=== PATIENT | female | born 1960 | race Caucasian/White ===

== ENCOUNTER 2018-07-02 08:29 | Emergency (ER) | payer SELFPAY ==
[2018-07-02] MEDS ORDERED: CLINDAMYCIN PHOSPHATE INJ 300 MG/2 ML SDV IV ONE (09:21)
[2018-07-02] MEDS ORDERED: HYDROMORPHONE HCL INJ/PF 2 MG/ML AMPULE IV ONE ×2 (09:22→13:47)
[2018-07-02] MEDS ORDERED: ONDANSETRON HCL INJ/PF 4 MG/2 ML SDV IV ONE (09:22)
--- NOTE | 2018-07-02 09:34 | ER Document Report ---
ED General - General Chief Complaint: Abscess Stated Complaint: POSSIBLE ABSCESS Time Seen by Provider: 07/02/18 09:14 Notes: 58-year-old female presents with 4-day history of left neck swelling. She has a history of salivary duct stones. She states that she is feeling pus in her mouth. States when she lifts her tongue she can feel pus escaping from the underneath. She denies any significant difficulty swallowing denies fever chills denies nausea vomiting planes of severe 10 out of 10 pain in her left neck. Movement makes it worse. She denies any headache or blurred vision. Denies extremity numbness tingling or weakness. TRAVEL OUTSIDE OF THE [place] IN LAST 30 DAYS: No - Related Data Allergies/Adverse Reactions: No Known Allergies Allergy (Unverified 07/02/18 08:31) Past Medical History - Social History Smoking Status: Unknown if Ever Smoked Family History: Other Review of Systems - Review of Systems EENT: Throat pain, Throat swelling, Mouth pain, Mouth swelling Cardiovascular: denies: Chest pain, Dyspnea Respiratory: denies: Short of breath Gastrointestinal: denies: Nausea, Vomiting Neurological/Psychological: denies: Headaches -: Yes All other systems reviewed and negative Physical Exam - Vital signs Vitals: Temp Pulse Resp BP Pulse Ox 99.8 F 78 20 165/78 H 96 07/02/18 08:34 07/02/18 08:34 07/02/18 08:34 07/02/18 08:34 07/02/18 08:34 - Notes Notes: GENERAL_APPEARANCE: well_nourished, alert, cooperative, appears uncomfortable VITALS: reviewed, see vital signs table. HEAD: no_swelling\tenderness on the head. EYES: PERRL, EOMI, conjunctiva_clear. NOSE: no_nasal_discharge. MOUTH: (-)decreased moisture. THROAT: no_tonsilar_inflammation, no_airway_obstruction. no_lymphadenopathy NECK: supple, (-)thyromegaly. There is swelling under the left mandible. There is no obvious fluctuance that is firm. The patient has had several teeth removed on the left lower jaw there is some redness and some pus being expressed around the jaw/salivary gland. BACK: no_back_tenderness. CHEST_WALL: no_chest_tenderness. LUNGS: no_wheezing, no_rales, no_rhonchi, (-)accessory muscle use, good air exchange bilateral. HEART: normal_rate, normal_rhythm, normal_S1, normal_S2, (-)S3, (-)S4, no_murmur, no_rub. ABDOMEN: normal_BS, soft, no_abd_tenderness, (-)guarding, (-)rebound, no_organomegaly, no_abd_masses. EXTREMITIES: good pulses in all_extremities, no_swelling\tenderness in the extremities, no_edema. SKIN: warm, dry, good_color, no_rash. MENTAL_STATUS: speech_clear, oriented_X_3, normal_affect, responds_appropriately to questions. Course - Re-evaluation Re-evalutation: 07/02/18 09:33 58-year-old female presents with a neck abscess. This may likely be a obstructed or infected salivary gland. We will get a CT of the soft tissue of the neck to evaluate we will give some IV antibiotics. Something for pain. Patient has no airway obstruction no drooling or stridor. The right side of the floor the mouth seems unaffected worse the left is slightly reddened and has some pus being expressed the closer it gets closer to the inside of the shelton ible. 07/02/18 13:[address] 07/02/18 09:21 IMPRESSION: Left submandibular sialadenitis with sialolithiasis. No abscess or obvious fluid collection. Patient given a dose of steroids here with placed on antibiotics steroids for home. Will prescribe her something for pain. She received pain medicine here and felt better I have her continue to month massage the floor of her mouth and use lemon drops and sour tasting acidic juice to try to liberate the stones. We will give her ENT follow-up. - Vital Signs Vital signs: Temp Pulse Resp BP Pulse Ox 98.7 F 76 16 128/84 H 96 07/02/18 13:28 07/02/18 13:28 07/02/18 13:28 07/02/18 13:28 07/02/18 13:28 - Laboratory Result Diagrams: 07/02/18 10:06 07/02/18 10:06 Laboratory results interpreted by me: 07/02/18 10:06 WBC 11.1 H Lymphocytes % 11.5 L Absolute Neutrophils 8.6 H - Diagnostic Test Radiology reviewed: Reports reviewed Discharge - Discharge Clinical Impression: Sialadenitis Condition: Good Disposition: HOME, SELF-CARE Instructions: Dental Infection or Abscess ([facility]) Additional Instructions: Call [facility] for an appointment. Continue using lemon drops and Lyme and sour drops and massage the floor of the mouth to try to liberate the salivary stones. Prescriptions: Clindamycin HCl 300 mg PO QID #30 capsule Hydrocodone/Acetaminophen [Kin[place] 5-325 mg Tablet] 1 tab PO TID PRN #20 tablet PRN Reason: Pain Scale Of 5 Prednisone [Deltasone 10 mg Tablet] 10 mg PO ASDIR PRN #21 tablet PRN Reason: Referrals: ONEAL ANDREW NP [Primary Care Provider] - Follow up as needed ELOINA LOPEZ MD [ACTIVE STAFF] - Follow up as needed
[2018-07-02 10:40] LABS: ABSOLUTE BASOPHILS # (AUTO) 0.1 10^3/uL (0.0-0.2); ABSOLUTE EOSINOPHILS # (AUTO) 0.2 10^3/uL (0.0-0.6); ABSOLUTE LYMPHOCYTES (AUTO) 1.3 10^3/uL (0.5-4.7); ABSOLUTE MONOCYTES (AUTO) 0.9 10^3/uL (0.1-1.4); ABSOLUTE NEUT (AUTO) 8.6 10^3/uL (1.7-8.2); BASOPHILS % (AUTO) 0.6 % (0-2); EOSINOPHILS % (AUTO) 2.3 % (0-6); HEMATOCRIT 38.2 % (36.0-47.0); HEMOGLOBIN 12.6 g/dL (12.0-15.5); LYMPHOCYTES % (AUTO) 11.5 % (13-45); MEAN CORPUSCULAR HEMOGLOBIN 29.5 pg (27.0-33.4); MEAN CORPUSCULAR HGB CONC 32.9 g/dL (32.0-36.0); MEAN CORPUSCULAR VOLUME 90 fl (80-97); MONOCYTES % (AUTO) 8.1 % (3-13); PLATELET COUNT 196 10^3/uL (150-450); RED BLOOD COUNT 4.26 10^6/uL (3.72-5.28); RED CELL DISTRIBUTION WIDTH 13.7 % (11.5-14.0); SEGMENTED NEUTROPHILS % (AUTO) 77.5 % (42-78); TOTAL CELLS COUNTED % (AUTO) 100 %; WHITE BLOOD COUNT 11.1 10^3/uL (4.0-10.5)
[2018-07-02 10:44] LABS: PROTHROMBIN TIME 13.7 SEC (11.4-15.4)
[2018-07-02 11:05] LABS: ANION GAP 9 (5-19); BLOOD UREA NITROGEN 7 mg/dL (7-20); CALCIUM 9.6 mg/dL (8.4-10.2); CARBON DIOXIDE 27 mmol/L (22-30); CHLORIDE 102 mmol/L (98-107); GLUCOSE 100 mg/dL (75-110); POTASSIUM 4.4 mmol/L (3.6-5.0)
--- NOTE | 2018-07-02 11:57 | RADIOLOGY REPORT (SQ) ---
EXAM DESCRIPTION: CT SOFT TISSUE NECK WITH COMPLETED DATE/TIME: 07/02/2018 11:39 am REASON FOR STUDY: left neck abscess COMPARISON: None. TECHNIQUE: Post IV contrasted scanning from skull base through lung apices with review of bone, soft tissue and lung windows. Reconstructed coronal and sagittal MPR images reviewed. All images stored on PACS. All CT scanners at this facility use dose modulation, iterative reconstruction, and/or weight based d osing when appropriate to reduce radiation dose to as low as reasonably achievable (ALARA). [facility]: Dose Right [facility]: CareDose [facility]: Dose Right [facility]: Teradose 4D [facility]: [id number] CONTRAST TYPE AND DOSE: contrast/concentration: Isovue 350.00 mg/ml; Total Contrast Delivered: 75.0 ml; Total Saline Delivered: 55.0 ml RENAL FUNCTION: GFR > 60. RADIATION DOSE: CT Rad equipment meets quality standard of care and radiation dose reduction techniq ues were employed. CTDIvol: 12.2 mGy. DLP: 433 mGy-cm. . LIMITATIONS: None. FINDINGS: SKULL BASE: Intact. MAJOR SALIVARY GLANDS: 8 mm stone within enlarged left submandibular gland. There is a smaller stone in the left submandibular duct. LYMPHADENOPATHY: No adenopathy. MUCOSAL MASSES OR ASYMMETRY: No mucosal masses or asymmetry. LARYNX/CORDS: No abnormal findings. VASCULAR STRUCTURES: The major vessels are patent. LUNG APICES: Clear. BONES: Intact. THYROID: Normal size. No masses. PARANASAL SINUSES: Clear. OTHER: No other significant finding. IMPRESSION: Left submandibular sialadenitis with sialolithiasis. TECHNICAL DOCUMENTATION: JOB ID: [id number] Quality ID # [id number]: Final reports with documentation of one or more dose reduction techniques (e.g., Au tomated exposure control, adjustment of the mA and/or kV according to patient size, use of iterative reconstruction technique) 2010 [employer]- All Rights Reserved Reading location - IP/workstation name: [email or web address]
[2018-07-02] MEDS ORDERED: DEXAMETHASONE SOD PHOS INJ 10 MG/1 ML VIAL IV ONE (13:44)
[2018-07-02] MEDS ORDERED: DEXAMETHASONE SOD PHOS INJ 10 MG/1 ML VIAL IM ONE (14:24)
[2018-07-02 14:57] VITALS: BP 146/76
== END 2018-07-02 14:55 | disposition home or self-care (01) ==
LOC: ER 08:29
DX: K11.20 Sialoadenitis, unspecified (principal); R07.0 Pain in throat; K08.89 Other specified disorders of teeth and supporting structures
CPT/HCPCS: 96376; 99284; 96372; 96375; 96365; 36415; 87040; 85025; 85610; 80048; 70491; J3490; J1170; J2405; J1100

== ENCOUNTER 2019-01-11 09:10 | Emergency (ER) | payer BC ==
[2019-01-11] MEDS ORDERED: NORMAL SALINE 500 ML IV ONE (09:22)
[2019-01-11] MEDS ORDERED: METOCLOPRAMIDE HCL INJ/PF 10 MG/2 ML SDV IV ONE (09:23)
--- NOTE | 2019-01-11 09:25 | ER Document Report ---
ED Medical Screen (RME) - General Chief Complaint: Abdominal Pain Stated Complaint: ABDOMINAL PAIN Time Seen by Provider: 01/11/19 09:19 Primary Care Provider: ONEAL ANDREW NP [Primary Care Provider] - Follow up as needed Mode of Arrival: Wheelchair Information source: Patient Notes: Patient is a 58-year-old female presented to the emergency department with g eneralized abdominal pain loose stools over the last 3 weeks. Patient reports she saw her primary care provider for this last week and was tested for C. difficile but that test has not come back yet. Patient reports severe generalized abdominal pain, she denies any blood in her stools, she denies any nausea, vomiting, fever or chills. She denies ever having a history of this in the past. Exam: Generalized abdominal tenderness to palpation. I have greeted and performed a rapid initial assessment of this patient. A comprehensive ED assessment and evaluation of the patient, analysis of test results and completion of the medical decision making process will be conducted by additional ED providers. I have specifically instructed the patient or family members with the patient to immediately return to any nursing staff should anything change in the patient's condition or with their chief complaint. This medical record was dictated with voice recognizing software. There may be grammatical, syntax errors that are unintended. TRAVEL OUTSIDE OF THE [place] IN LAST 30 DAYS: No - Related Data Allergies/Adverse Reactions: No Known Allergies Allergy (Verified 01/11/19 09:11) Past Medical History - Past Medical History Cardiac Medical History: Reports: Hx Hypertension Renal/ Medical History: Denies: Hx Peritoneal Dialysis Physical Exam - Vital signs Vitals: Temp Pulse Resp BP Pulse Ox 97.5 F 58 L 18 104/58 L 97 01/11/19 09:16 01/11/19 09:16 01/11/19 09:16 01/11/19 09:16 01/11/19 09:16 Course - Vital Signs Vital signs: Temp Pulse Resp BP Pulse Ox 97.5 F 58 L 18 104/58 L 97 01/11/19 09:16 01/11/19 09:16 01/11/19 09:16 01/11/19 09:16 01/11/19 09:16 Doctor's Discharge - Discharge Referrals: ONEAL ANDREW NP [Primary Care Provider] - Follow up as needed
[2019-01-11 10:02] LABS: ABSOLUTE EOSINOPHILS # (AUTO) 0.2 10^3/uL (0.0-0.6); ABSOLUTE MONOCYTES (AUTO) 0.3 10^3/uL (0.1-1.4); ABSOLUTE NEUT (AUTO) 1.3 10^3/uL (1.7-8.2); TOTAL CELLS COUNTED % (AUTO) 100 %
[2019-01-11 10:07] LABS: BASOPHILS % (AUTO) 0.7 % (0-2); EOSINOPHILS % (AUTO) 4.1 % (0-6); HEMATOCRIT 42.5 % (36.0-47.0); LYMPHOCYTES % (AUTO) 53.3 % (13-45); MEAN CORPUSCULAR HEMOGLOBIN 28.8 pg (27.0-33.4); MEAN CORPUSCULAR VOLUME 87 fl (80-97); MONOCYTES % (AUTO) 7.7 % (3-13); PLATELET COUNT 261 10^3/uL (150-450); RED BLOOD COUNT 4.87 10^6/uL (3.72-5.28); SEGMENTED NEUTROPHILS % (AUTO) 34.2 % (42-78); WHITE BLOOD COUNT 3.8 10^3/uL (4.0-10.5)
[2019-01-11 10:19] LABS: ALANINE AMINOTRANSFERASE 38 U/L (9-52); ALBUMIN 4.4 g/dL (3.5-5.0); ALKALINE PHOSPHATASE 49 U/L (38-126); ANION GAP 8 (5-19); ASPARTATE AMINO TRANSFERASE 37 U/L (14-36); BILIRUBIN,DIRECT 0.2 mg/dL (0.0-0.4); BILIRUBIN,TOTAL 0.8 mg/dL (0.2-1.3); BLOOD UREA NITROGEN 11 mg/dL (7-20); CALCIUM 9.7 mg/dL (8.4-10.2); CARBON DIOXIDE 29 mmol/L (22-30); CHLORIDE 101 mmol/L (98-107); GLUCOSE 92 mg/dL (75-110); SODIUM 138.2 mmol/L (137-145); TOTAL PROTEIN 7.4 g/dL (6.3-8.2)
[2019-01-11] MEDS ORDERED: MORPHINE SULFATE 10 MG/ML INJ IV ONE (10:21)
[2019-01-11] MEDS ORDERED: ONDANSETRON HCL INJ/PF 4 MG/2 ML SDV IV ONE (10:21)
--- NOTE | 2019-01-11 10:25 | ER Document Report ---
ED General - General Chief Complaint: Abdominal Pain Stated Complaint: ABDOMINAL PAIN Time Seen by Provider: 01/11/19 09:19 Primary Care Provider: ONEAL ANDREW NP [Primary Care Provider] - Follow up in 3-5 days Mode of Arrival: Wheelchair Information source: Patient, Relative Notes: 58-year-old female with hypertension, alcohol abuse, anxiety presents with ab dominal pain, diarrhea and nausea. Patient states that abdominal pain started 3 weeks prior to arrival. Pain is generally located, intermittent. Patient has had one loose stool per day for the last 3 weeks. Patient was seen by her primary care physician and tested for C. difficile which was negative. She has recently been placed on an antibiotic for a urinary tract infection which she did complete. She denies any fever, chills, chest pain, shortness of breath, dysuria, hematuria. TRAVEL OUTSIDE OF THE [place] IN LAST 30 DAYS: No - HPI Onset: Other Onset/Duration: Gradual, Intermittent, Persistent Quality of pain: Cramping Severity: Mild Associated symptoms: Diarrhea, Nausea. denies: Chest pain, Fever, Headache, Shortness of breath Exacerbated by: Denies Relieved by: Denies Similar symptoms previously: Yes Recently seen / treated by doctor: Yes - Related Data Allergies/Adverse Reactions: No Known Allergies Allergy (Verified 01/11/19 09:11) Past Medical History - General Information source: Patient - Social History Smoking Status: Current Every Day Smoker Cigarette use (# per day): Yes - 20 Smoking Education Provided: Yes - Smoking cessation counseling was provided for 4 minutes at the bedside Frequency of alcohol use: Heavy Drug Abuse: None Lives with: Family Family History: Reviewed & Not Pertinent, Other Patient has suicidal ideation: No Patient has homicidal ideation: No - Past Medical History Cardiac Medical History: Reports: Hx Hypertension Renal/ Medical History: Denies: Hx Peritoneal Dialysis Review of Systems - Review of Systems Notes: REVIEW OF SYSTEMS: CONSTITUTIONAL : Denies fever, chills, or sweats. + recent illness. Denies weight loss, recent hospitalizations. EENT: Denies visual changes, eye pain. Denies sore throat, oral lesions, difficulty swallowing. CARDIOVASCULAR: Denies chest pain. Denies palpitations. Denies lower extremity edema. RESPIRATORY: Denies cough. Denies shortness of breath, wheezing. GASTROINTESTINAL: Denies abdominal distention. Denies vomiting denies blood in vomitus, stools, or per rectum. Denies black, tarry stools. Denies constipation. GENITOURINARY: Denies difficulty urinating, painful urination, frequency, blood in urine, or vaginal discharge. MUSCULOSKELETAL: Denies back or neck pain or stiffness. Denies joint pain or swelling. SKIN: Denies rash, lesions or sores. HEMATOLOGIC : Denies easy bruising or bleeding. LYMPHATIC: Denies swollen glands. NEUROLOGICAL: Denies confusion or altered mental status. Denies loss of consciousness. Denies dizziness or lightheadedness. Denies headache. Denies paralysis. Denies problems difficulty with ambulation, slurred speech. Denies sensory loss, numbness, or tingling. Denies seizures. PSYCHIATRIC: Denies anxiety or stress. Denies depression, suicidal ideation, or homicidal ideation. Denies visual or auditory hallucinations. Physical Exam - Vital signs Vitals: Temp Pulse Resp BP Pulse Ox 97.5 F 58 L 18 104/58 L 97 01/11/19 09:16 01/11/19 09:16 01/11/19 09:16 01/11/19 09:16 01/11/19 09:16 - Notes Notes: PHYSICAL EXAMINATION: GENERAL: Well-appearing, well-nourished and in no acute distress. HEAD: Atraumatic, normocephalic. EYES: Pupils equal round and reactive to light, extraocular movements intact, conjunctiva are normal. ENT: Nares patent, oropharynx clear without exudates. Moist mucous membranes. NECK: Normal range of motion, supple without lymphadenopathy LUNGS: Breath sounds clear to auscultation bilaterally and equal. No wheezes rales or rhonchi. HEART: Regular rate and rhythm without murmurs ABDOMEN: Soft, nontender, nondistended abdomen. No guarding, no rebound. No masses appreciated. Female : deferred Musculoskeletal: Normal range of motion, no pitting or edema. No cyanosis. NEUROLOGICAL: Cranial nerves grossly intact. Normal speech, normal gait. Normal sensory, motor exams PSYCH: Normal mood, normal affect. SKIN: Warm, Dry, normal turgor, no rashes or lesions noted. Course - Re-evaluation Re-evalutation: Laboratory 01/11/19 01/11/19 01/11/19 09:30 09:30 09:30 WBC 3.8 L RBC 4.87 Hgb 14.0 Hct 42.5 MCV 87 MCH 28.8 MCHC 33.0 RDW 13.0 Plt Count 261 Seg Neutrophils % 34.2 L Lymphocytes % 53.3 H Monocytes % 7.7 Eosinophils % 4.1 Basophils % 0.7 Absolute Neutrophils 1.3 L Absolute Lymphocytes 2.0 Absolute Monocytes 0.3 Absolute Eosinophils 0.2 Absolute Basophils 0.0 Sodium 138.2 Potassium 4.0 Chloride 101 Carbon Dioxide 29 Anion Gap 8 BUN 11 Creatinine 0.86 Est GFR ( Amer) > 60 Est GFR (Non-Af Amer) > 60 Glucose 92 Calcium 9.7 Total Bilirubin 0.8 Direct Bilirubin 0.2 Neonat Total Bilirubin Not Reportable Neonat Direct Bilirubin Not Reportable Neonat Indirect Bili Not Reportable AST 37 H ALT 38 Alkaline Phosphatase 49 Total Protein 7.4 Albumin 4.4 Lipase 197.0 Urine Color YELLOW Urine Appearance CLEAR Urine pH 6.0 Ur Specific Velarde 1.010 Urine Protein NEGATIVE Urine Glucose (UA) NEGATIVE Urine Ketones NEGATIVE Urine Blood NEGATIVE Urine Nitrite NEGATIVE Urine Bilirubin NEGATIVE Urine Urobilinogen NEGATIVE Ur Leukocyte Esterase NEGATIVE Urine RBC (Auto) 0 U Hyaline Cast (Auto) 1 Squamous Epi Cells Auto <1 Urine Mucus (Auto) RARE Urine Ascorbic Acid NEGATIVE Abdomen/Pelvis CT 01/11/19 00:00 IMPRESSION: No acute findings. Temp Pulse Resp BP Pulse Ox 97.5 F 58 L 18 104/58 L 97 01/11/19 09:16 01/11/19 09:16 01/11/19 09:16 01/11/19 09:16 01/11/19 09:16 01/11/19 13:26 Patient reevaluated after receiving morphine and Zofran and reports improvement of her pain and nausea. 01/12/19 19:45 58-year-old female with hypertension, alcohol abuse, anxiety presents with abdominal pain, diarrhea and nausea. Patient states that abdominal pain started 3 weeks prior to arrival. Pain is generally located, intermittent. Patient has had one loose stool per day for the last 3 weeks. Patient was seen by her primary care physician and tested for C. difficile which was negative. She has recently been placed on an antibiotic for a urinary tract infection which she did complete. She denies any fever, chills, chest pain, shortness of breath, dysuria, hematuria. Vital signs reviewed and patient is afebrile hypotensive. She is alert, awake and in no acute distress. She does not appear toxic or dehydrated. Her son is at the bedside. CBC is without leukocytosis or anemia. CMP shows no significant electrolyte abnormality. Urinalysis not consistent with infection. CT of the abdomen pelvis had no acute findings. Patient is tolerating p.o. Appears well. Has supportive help at home. Patient and her son were provided copies of all of the patient's imaging and lab work that were performed today. Advised that she follow-up with her primary care physician if symptoms persisted. Patient was evaluated and treated as appropriate for the patient's presenting symptoms and complaint, with consideration of any critical or life threatening conditions that may be associated with their obtained history and exam as noted above. All results were discussed with patient and her son who is at the bedside patient provided the opportunity to ask questions, and express concerns. Patient was educated on treatments based on their presumed diagnosis as noted above. At this time we will discharge the patient with return precautions and follow-up recommendations. Verbal discharge instructions given a the bedside. Medication warnings reviewed. Patient is in agreement with this plan and has verbalized understanding of return precautions. After careful consideration I feel that that patient can be safely discharged from the emergency department, they were advised to followup with a primary care physician in 2-3 days. Dictation on this chart was performed using voice recognition software and may result in unintended grammatical, spelling, syntax or errors. - Vital Signs Vital signs: Temp Pulse Resp BP Pulse Ox 97.5 F 75 16 109/63 99 01/11/19 09:16 01/11/19 13:44 01/11/19 13:44 01/11/19 13:44 01/11/19 13:44 - Laboratory Result Diagrams: 01/11/19 09:30 01/11/19 09:30 Laboratory results interpreted by me: 01/11/19 01/11/19 09:30 09:30 WBC 3.8 L Seg Neutrophils % 34.2 L Lymphocytes % 53.3 H Absolute Neutrophils 1.3 L AST 37 H - Diagnostic Test Radiology reviewed: Image reviewed, Reports reviewed Discharge - Discharge Clinical Impression: Viral illness, Nausea Abdominal pain Qualifiers: Abdominal location: generalized Qualified Code(s): R10.84 - Generalized abdominal pain Diarrhea Qualifiers: Diarrhea type: unspecified type Qualified Code(s): R19.7 - Diarrhea, unspecifie d Condition: Good Disposition: HOME, SELF-CARE Instructions: Abdominal Pain ([facility]), Antinausea Medication ([facility]), Diarrhea, N onspecific ([facility]), Viral Syndrome ([facility]) Prescriptions: Dicyclomine HCl [Bentyl 20 mg Tablet] 20 mg PO QID #20 tablet Ondansetron [Zofran Odt 4 mg Tablet] 1 - 2 tab PO Q4H PRN #15 tab.rapdis PRN Reason: For Nausea/Vomiting Forms: Return to Work Referrals: ONEAL ANDREW, CLEANING ASSOCIATE [Primary Care Provider] - Follow up in 3-5 days
[2019-01-11 10:37] LABS: APPEARANCE,URINE CLEAR; BILIRUBIN,URINE NEGATIVE (NEGATIVE); COLOR,URINE YELLOW; GLUCOSE, URINE NEGATIVE (NEGATIVE); KETONES,URINE NEGATIVE (NEGATIVE); LEUKOCYTE ESTERASE,URINE NEGATIVE (NEGATIVE); NITRITE,URINE NEGATIVE (NEGATIVE); PROTEIN,URINE NEGATIVE (NEGATIVE); UROBILINOGEN,URINE NEGATIVE mg/dL (<2.0)
--- NOTE | 2019-01-11 13:14 | RADIOLOGY REPORT (SQ) ---
EXAM DESCRIPTION: CT ABD/PELVIS WITH IV ORAL COMPLETED DATE/TIME: 01/11/2019 12:57 pm REASON FOR STUDY: pain COMPARISON: None. TECHNIQUE: CT scan of the abdomen and pelvis performed with intravenous and oral contrast using alan graciela scanning technique with dynamic intravenous contrast injection. Images reviewed with lung, soft t issue, and bone windows. Reconstructed coronal and sagittal MPR images reviewed. Delayed images for e valuation of the urinary system also acquired. All images stored on PACS. All CT scanners at this facility use dose modulation, iterative reconstruction, and/or weight based d osing when appropriate to reduce radiation dose to as low as reasonably achievable (ALARA). [facility]: Dose Right [facility]: CareDose [facility]: Dose Right [facility]: Teradose 4D [facility]: PV [employer] CONTRAST TYPE AND DOSE: contrast/concentration: Isovue 350.00 mg/ml; Total Contrast Delivered: 70.0 ml; Total Saline Delivered: 65.0 ml RENAL FUNCTION: GFR > 60. RADIATION DOSE: CT Rad equipment meets quality standard of care and radiation dose reduction techniq ues were employed. CTDIvol: 5.5 - 7.8 mGy. DLP: 660 mGy-cm. . LIMITATIONS: None. FINDINGS: LOWER CHEST: No significant findings. No nodules or infiltrates. LIVER: Normal size. No masses. No dilated ducts. SPLEEN: Normal size. No focal lesions. PANCREAS: No masses. No significant calcifications. No adjacent inflammation or peripancreatic fluid collections. Pancreatic duct not dilated. GALLBLADDER: No identified stones by CT criteria. No inflammatory changes to suggest cholecystitis. ADRENAL GLANDS: No significant masses or asymmetry. RIGHT KIDNEY AND URETER: No solid masses. No significant calcifications. No hydronephrosis or hyd roureter. LEFT KIDNEY AND URETER: No solid masses. No significant calcifications. No hydronephrosis or hydr oureter. AORTA AND VESSELS: Aortic ectasia. No aneurysm. RETROPERITONEUM: No retroperitoneal adenopathy, hemorrhage or masses. BOWEL AND PERITONEAL CAVITY: No obstruction. No visualized masses. No free fluid. No inflammatory ch anges or thickening of bowel wall. APPENDIX: Normal. PELVIS: No significant masses. Normal bladder. No free fluid. ABDOMINAL WALL: No masses. No hernias. BONES: No significant or acute findings. OTHER: No other significant finding. IMPRESSION: No acute findings. TECHNICAL DOCUMENTATION: JOB ID: [id number] Quality ID # [id number]: Final reports with documentation of one or more dose reduction techniques (e.g., Au tomated exposure control, adjustment of the mA and/or kV according to patient size, use of iterative reconstruction technique) 2010 [employer]- All Rights Reserved Reading location - IP/workstation name: [email or web address]
[2019-01-11 13:44] VITALS: BP 109/63
== END 2019-01-11 13:54 | disposition home or self-care (01) ==
LOC: ER 09:10
DX: R10.84 Generalized abdominal pain (principal); R11.0 Nausea; B34.9 Viral infection, unspecified; R19.7 Diarrhea, unspecified; F41.9 Anxiety disorder, unspecified; F10.10 Alcohol abuse, uncomplicated; I10 Essential (primary) hypertension; F17.210 Nicotine dependence, cigarettes, uncomplicated
CPT/HCPCS: 99406; 99284; 96361; 96374; 96375; 36415; 87040; 83690; 85025; 80053; 81001; 74177; J2765; J2270; J2405; J7040